=== PATIENT | female | born 1980 | race Caucasian/White ===

== ENCOUNTER 2018-01-27 11:49 | Emergency (ER) | payer MEDICAID, SELFPAY ==
--- NOTE | 2018-01-27 11:49 | DT_ITS ---
This patient was seen during an EMR downtime January 22, 2018 - January 29, 2018. This patient may have a combination of paper and electronic documentation or all paper documentation. All documentation is viewable within the e-chart portion of [facility] for each patient visit.
== END 2018-01-27 12:05 | disposition home or self-care (01) ==
LOC: ED 01-28 13:13
PROVIDERS: Emergency Provider Emergency Medicine
DX: H10.9 Unspecified conjunctivitis (principal)
CPT/HCPCS: 99283